=== PATIENT | female | born 1975 | race Caucasian/White ===

== ENCOUNTER 2017-06-25 13:37 | Emergency (ER) | payer OTHER ==
[2017-06-25 13:47] VITALS: BP 136/91
--- NOTE | 2017-06-25 14:34 | EDM.PDOC ---
ED HPI GENERAL MEDICAL PROBLEM - General Chief Complaint: Eye Problems Stated Complaint: LOSS OF VISION IN LEFT EYE Time Seen by Provider: 06/25/17 14:04 Source of Information: Reports: Patient History Limitations: Reports: No Limitations - History of Present Illness INITIAL COMMENTS - FREE TEXT/NARRATIVE: Patient is a 41-year-old female who presents ED complaining of episodic left thigh vision loss. This occurred approximately 10:30 this morning after starting her vehicle. Came on abruptly went away after a few seconds. She has a similar episode 06/22/2017. She has no complaints at this time except head is alittle fuzzy.Had flu like symptoms this weekend. This included: Generalized body aches, headache, fever 102F, with intermittent dizziness that has all since resolved as of today. She has no recent trauma to her head nor history of TIA/stroke. 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 There is no facial droop, weakness, slurred speech, difficulty swallowing present. Patient does smoke half pack per day is currently on no control. There is a family history of MS and notes that she had a previous MRI of the brain that revealed multiple white matter lesions present. She is currently on no medications. - Related Data Allergies Allergy/AdvReac Type Severity Reaction Status Date / Time doxycycline Allergy Rash Verified 06/25/17 13:47 Home Meds: Home Meds D-Methorphan/Acetamin/Doxylamn [Cold-Flu Relief] 1 dose PO ASDIRECTED PRN [History] Past Medical History Other Cardiovascular History: asystole during tonsillectomy as child, reynauds Respiratory History: Reports: Pneumonia, Recurrent Other Respiratory History: open lung biopsy Other OB/BYN History: miscarriage at 20 weeks, blood clot during Other Neuro History: family history of MS; Belles palsy 2005 Other Endocrine/Metabolic History: cyst by thyroid, was removed; Other Dermatologic History: hydradenititis - Past Surgical History Other Female Surgeries/Procedures: pre-eclampsia 2nd child, cervical intraipthelial neoplasma x2, D&C, bladder sling Other Musculoskeletal Surgeries/Procedures:: broke foot 97 Social & Family History - Family History Family Medical History: Noncontributory - Tobacco Use Smoking Status *Q: Current Every Day Smoker Years of Tobacco use: 20 Packs/Tins Daily: 0.5 Used Tobacco, but Quit: No Month Tobacco Last Used: october Second Hand Smoke Exposure: No - Caffeine Use Caffeine Use: Reports: Coffee - Alcohol Use Days Per Week of Alcohol Use: 1 Number of Drinks Per Day: 1 Total Drinks Per Week: 1 - Recreational Drug Use Recreational Drug Use: No Drug Use in Last 12 Months: No ED ROS GENERAL - Review of Systems Review Of Systems: ROS reveals no pertinent complaints other than HPI. ED EXAM GENERAL W FULL EYE - Physical Exam Exam: See Below Exam Limited By: No Limitations General Appearance: Alert, WD/WN, No Apparent Distress Eye Exam: Bilateral Eye: EOMI, PERRL Eyelids: Bilateral: Normal Appearance Conjunctiva & Sclera: Bilateral: Normal Appearance Extraocular Movements: Bilateral: Intact Pupillary Size: Bilateral: 4 mm Pupillary Reaction: Bilateral: Brisk Ears: Hearing Grossly Normal Nose: Normal Inspection Throat/Mouth: Normal Voice, No Airway Compromise Neck: Normal Inspection, Supple Respiratory/Chest: No Respiratory Distress, Lungs Clear, Normal Breath Sounds, No Accessory Muscle Use Cardiovascular: Normal Peripheral Pulses, Regular Rate, Rhythm, No Murmur Extremities: Normal Inspection Neurological: Alert, Oriented, CN II-XII Intact, Normal Cognition, No Motor/ Sensory Deficits, Other (no facial droop, slurred speech, weakness to the upper/ lower extremities) Psychiatric: Normal Affect, Normal Mood Skin Exam: Warm, Dry, Intact, Normal Color Course - Vital Signs Last Recorded V/S: Last Vital Signs Temp 97.9 F 06/25/17 13:40 Pulse 81 06/25/17 13:40 Resp 18 06/25/17 13:40 BP 136/91 H 06/25/17 13:40 Pulse Ox 98 06/25/17 13:40 - Orders/Labs/Meds Labs: Laboratory Tests 06/25/17 06/25/17 Range/Units 14:40 14:40 WBC 3.52 L (3.98-10.04) K/mm3 RBC 4.59 (3.98-5.22) M/mm3 Hgb 14.2 (11.2-15.7) gm/L Hct 42.6 (34.1-44.9) % MCV 92.8 (79.4-94.8) fl MCH 30.9 (25.6-32.2) pg MCHC 33.3 (32.2-35.5) g/dl RDW Std Deviation 41.8 (36.4-46.3) fL Plt Count 220 (182-369) K/mm3 MPV 10.0 (9.4-12.3) fl Neut % (Auto) 29.0 L (34.0-71.1) % Lymph % (Auto) 58.2 H (19.3-51.7) % [place] % (Auto) 10.2 (4.7-12.5) % Eos % (Auto) 2.3 (0.7-5.8) Baso % (Auto) 0.3 (0.1-1.2) % Neut # (Auto) 1.02 L (1.56-6.13) K/mm3 Lymph # (Auto) 2.05 (1.18-3.74) K/mm3 [place] # (Auto) 0.36 (0.24-0.36) K/mm3 Eos # (Auto) 0.08 (0.04-0.36) K/mm3 Baso # (Auto) 0.01 (0.01-0.08) K/mm3 Sodium 142 (136-145) mEq/L Potassium 3.9 (3.5-5.1) mEq/L Chloride 108 H (98-107) mEq/L Carbon Dioxide 24 (21-32) mEq/L Anion Gap 13.9 (5-15) BUN 8 (7-18) mg/dL Creatinine 0.6 (0.55-1.02) mg/dL Est Cr Clr Drug Dosing 123.21 mL/min Estimated GFR (MDRD) > 60 (>60) mL/min BUN/Creatinine Ratio 13.3 L (14-18) Glucose 100 (74-106) mg/dL Calcium 8.7 (8.5-10.1) mg/dL Total Bilirubin 0.2 (0.2-1.0) mg/dL AST 15 (15-37) U/L ALT 28 (14-59) U/L Alkaline Phosphatase 71 (46-116) U/L C-Reactive Protein < 0.2 (<1.0) mg/dL Total Protein 6.5 (6.4-8.2) g/dl Albumin 3.4 (3.4-5.0) g/dl Globulin 3.1 gm/dL Albumin/Globulin Ratio 1.1 (1-2) TSH 3rd Generation 1.724 (0.358-3.74) uIU/mL - Re-Assessments/Exams Free Text/Narrative Re-Assessment/Exam: Will obtain CT of the head without contrast along with basic labs including CBC , chem 14, CRP, influenza screen, and also TSH. Visual Acuity per nursing staff: 20/20 bilateral, 20/40 right, 20/[address] of the head impression: Nothing acute is identified a noncontrast head CT study. No significant changes seen from prior head CT exam dated 02/11/16. 06/25/17 15:42 Labs reviewed: CBC and chemistry panel essentially normal. CRP less than 0.2. TSH 1.74. She was able to obtain appointment with food and nutrition services assistant at 4:00 today. Will discharge home with instructions. Outpatient MRI of the brain with and without contrast will be obtained. Departure - Departure Time of Disposition: 15:43 Disposition: Home, Self-Care 01 Condition: Good Clinical Impression: Vision loss of left eye - Discharge Information Referrals: Rob Amor MD [Primary Care Provider] - Forms: ED Department Discharge Additional Instructions: As discussed MRI of the brain with and without contrast will be obtained on outpatient basis. Unclear etiology of recent episodic vision loss to the left eye. This may be associated with MS. Keep appointment with food and nutrition services assistant scheduled for this afternoon at 1600 hrs. Return to ED if you develop any new or worsening symptoms. Follow-up with her primary care provider this coming week for reevaluation and results of MRI.
--- NOTE | 2017-06-25 14:58 | CT ---
Head CT Technique: Multiple axial sections through the brain were obtained. Intravenous contrast was not utilized. Comparison: Prior head CT exam of 02/11/16. Findings: Ventricles along with basal cisterns and sulci over the convexities are within normal limits for the patient's age. No abnormal parenchymal densities are seen. No evidence of intracranial hemorrhage. No midline shift or mass effect is seen. Bone window settings were reviewed which show the visualized sinuses to appear clear. No acute calvarial abnormality is seen. Impression: 1. Nothing acute is identified on noncontrast head CT study. No significant change is seen from prior head CT exam. Diagnostic code #1
== END 2017-06-25 15:50 | disposition home or self-care (01) ==
LOC: JD.ED 13:37
DX: H54.7 Unspecified visual loss (principal); F17.210 Nicotine dependence, cigarettes, uncomplicated; Z88.1 Allergy status to other antibiotic agents
CPT/HCPCS: 36415; 70450; 70450-26; 80053; 84443; 85025; 86140; 87804; 99283; 99284-25

== ENCOUNTER 2017-11-27 06:59 | Day surgery (SDC) | payer OTHER ==
--- NOTE | 2017-11-27 06:47 | PCM.PREANE ---
Preanesthetic Assessment - Anesthesia/Transfusion/Family Hx Anesthesia History: Prior Anesthesia Without Reaction Family History of Anesthesia Reaction: No Transfusion History: No Prior Transfusion(s) Intubation History: Unknown - Review of Systems General: No Symptoms Pulmonary: No Symptoms (Smoker: 0.5 packs/day times 25 years.) Cardiovascular: Lightheadedness (Patient states she gets dizzy on occasion.) Gastrointestinal: No Symptoms (GERD) Neurological: No Symptoms (History of raynauds disease) Other: Reports: Depression, Anxiety - Physical Assessment NPO Status Date: 11/26/17 NPO Status Time: 21:00 Pulse: 71 O2 Sat by Pulse Oximetry: 97 Respiratory Rate: 16 Blood Pressure: 115/72 Temperature: 37.4 C Height: 1.73 m Weight: 78.471 kg ASA Class: 2 Mental Status: Alert & Oriented x3 Airway Class: Mallampati = 2 Dentition: Reports: Normal Dentition, Caries Thyro-Mental Finger Breadths: 3 Mouth Opening Finger Breadths: 3 ROM/Head Extension: Full Lungs: Clear to Auscultation, Normal Respiratory Effort Cardiovascular: Regular Rate, Regular Rhythm, No Murmurs - Lab Values: Lab values reviewed and noted and within acceptable ranges to proceed with scheduled procedure. - Imaging/EKG Impressions: Prior EKG: SR rate 68, LAFB, RBBB. - Allergies Allergies/Adverse Reactions: Allergies Allergy/AdvReac Type Severity Reaction Status Date / Time doxycycline Allergy Rash Verified 11/26/17 13:19 - Anesthesia Plan Pre-Op Medication Ordered: None - Acknowledgements Anesthesia Type Planned: General Anesthesia Pt an Appropriate Candidate for the Planned Anesthesia: Yes Alternatives and Risks of Anesthesia Discussed w Pt/Guardian: Yes Pt/Guardian Understands and Agrees with Anesthesia Plan: Yes PreAnesthesia Questionnaire Cardiovascular History: Reports: None Other Cardiovascular History: asystole during tonsillectomy as child Respiratory History: Reports: Pneumonia, Recurrent Other Respiratory History: open lung biopsy Gastrointestinal History: Reports: Hemorrhoids Genitourinary History: Reports: Urinary Incontinence ETHANOL QUALITY LEADER History: Reports: Spontaneous Other OB/BYN History: miscarriage at 20 weeks, blood clot during , female pelvic organ prolapse, rectocele, cystocele Other Neuro History: family history of MS; Belles palsy 2006 Psychiatric History: Reports: Anxiety, Depression Other Endocrine/Metabolic History: cyst by thyroid, was removed; Hematologic History: Reports: None Immunologic History: Reports: None Oncologic (Cancer) History: Reports: None Other Dermatologic History: hydradenititis - Past Surgical History Head Surgeries/Procedures: Reports: None HEENT Surgical History: Reports: Adenoidectomy, Tonsillectomy Cardiovascular Surgical History: Reports: None GI Surgical History: Reports: None Female Surgical History: Reports: D&C, Hysterectomy, LEEP, Oophorectomy, Salpingo-Oophorectomy, Tubal Ligation Other Female Surgeries/Procedures: pre-eclampsia 2nd child, cervical intraipthelial neoplasma x2, D&C, bladder sling Endocrine Surgical History: Reports: Thyroid Biopsy Neurological Surgical History: Reports: None Other Musculoskeletal Surgeries/Procedures:: broke foot 97, hammertoe and bunion correction to right foot Oncologic Surgical History: Reports: None - SUBSTANCE USE Smoking Status *Q: Current Every Day Smoker Tobacco Use Within Last Twelve Months: Cigarettes Second Hand Smoke Exposure: No Days Per Week of Alcohol Use: 1 Number of Drinks Per Day: 1 Total Drinks Per Week: 1 Recreational Drug Use History: No - HOME MEDS Home Medications: Home Meds Docusate Sodium [Colace] 100 mg PO DAILY 11/26/17 [History] LORazepam [Ativan] 0.5 mg PO QID PRN 11/26/17 [History] Ranitidine [Zantac] 75 mg PO DAILY 11/26/17 [History]
[2017-11-27] MEDS ORDERED: Lidocaine 1% with EPINEPHrine 1:100,000 20 ML MDV ONE (07:06)
[2017-11-27] MEDS ORDERED: Sodium Chloride 0.9% 50 ML SDV ONE (07:06)
[2017-11-27] MEDS ORDERED: Dexamethasone 4 MG/ML 5 ML MDV ONE (07:11)
[2017-11-27] MEDS ORDERED: ceFAZolin 1 GM Vial ONE (07:11)
[2017-11-27] MEDS ORDERED: Lidocaine 1% 6 ML ONE (07:11)
[2017-11-27] MEDS ORDERED: Ketorolac 30 MG/ML SDV ONE (07:11)
[2017-11-27] MEDS ORDERED: Rocuronium 50 MG/5 ML Vial ONE (07:11)
[2017-11-27] MEDS ORDERED: Lactated Ringers 1,000 ML ONE (07:11)
[2017-11-27] MEDS ORDERED: Ondansetron 4 MG/2 ML SDV ONE (07:11)
[2017-11-27] MEDS ORDERED: Propofol 200 MG/20 ML SDV ONE (07:12)
[2017-11-27] MEDS ORDERED: Midazolam 1 MG/ML 2 ML SDV ONE (07:12)
[2017-11-27] MEDS ORDERED: fentaNYL 250 MCG/5 ML SDV ONE (07:12)
[2017-11-27] MEDS ORDERED: HYDROmorphone 0.5 MG/0.5 ML Syringe ONE (07:13)
[2017-11-27] MEDS: Lactated Ringers 1,000 ML IV SCH ×2 (07:20→11:49)
[2017-11-27] MEDS ORDERED: Lidocaine 1%/Sod Bicarbonate in NS 8.4% 1 ML Syringe IDERM PRN (07:44)
[2017-11-27] MEDS ORDERED: Sodium Chloride 0.9% 10 ML Syringe FLUSH PRN ×2 (07:44)
[2017-11-27] MEDS ORDERED: diphenhydrAMINE 50 MG/ML SDV IVPUSH PRN (08:47)
[2017-11-27] MEDS ORDERED: Ondansetron 4 MG/2 ML SDV IVPUSH PRN (08:47)
[2017-11-27] MEDS ORDERED: fentaNYL 100 MCG/2 ML SDV IVPUSH PRN (08:47)
[2017-11-27] MEDS ORDERED: Midazolam 1 MG/ML 2 ML SDV IVPUSH PRN (08:47)
[2017-11-27] MEDS ORDERED: HYDROmorphone 0.5 MG/0.5 ML Syringe IVPUSH PRN (08:47)
[2017-11-27] MEDS ORDERED: Neostigmine Methylsulfate 1 MG/ML 5 ML Syringe ONE (08:53)
--- NOTE | 2017-11-27 08:57 | PCM.OPNOTE ---
- General Post-Op/Procedure Note Date of Surgery/Procedure: 11/27/17 Operative Procedure(s): Posterior vaginal repair, perineoplasty Findings: Very high grade 2 rectocele, mildly gaping introitus Pre Op Diagnosis: 1. Rectocele Post-Op Diagnosis: Same Anesthesia Technique: General ET Tube Other Anesthesia Type: Lidocaine quarter percent with [id number] mL total local Primary Surgeon: Natalio Zuniga Secondary Surgeon: Pierce Guerin Anesthesia Provider: Lexi Hong Reason Shoe Handler Was Necessary: Retraction, assistance, patient safety, quality of care Role of Shoe Handler: Retraction, assistance Fluid Replacement, Intraop: 400 EBL in mLs: 5 Complications: None Condition: Good Free Text/Narrative:: Surgery duration: 26 minutes Procedure: The patient is taken to the operating room and placed in a supine position on the operating table. She received 2 g of Ancef preoperatively for infection prophylaxis. She had sequential compression stockings in place for DVT prophylaxis. Patient was administered spinal anesthesia and administered sedation in addition. She's placed in a dorsal lithotomy position and prepped and draped in the usual fashion. The uppermost portion of the very high rectocele was identified and was grasped midline with an Allis clamp. The introital area was grasped at approximately the 4:00 and 8:00 positions at the junction of the vaginal and vulvar epithelium. The area of epithelium was then infiltrated with lidocaine quarter percent with epinephrine. A lee-shaped piece of epithelium was removed from the posterior introital and perineal area. The vaginal epithelium was then undermined superiorly to the top of the rectocele. Was then incised midline. With sharp and blunt dissection the epithelium was then dissected off of the underlying vesicovaginal fascia. At this point approximately 3 sutures of 0 Monocryl were placed to reapproximate the lateral supportive tissue midline and reduce the rectocele. The excess epithelium was then excised and the epithelium overlying the rectocele repair was then reapproximated with a running suture of 3-0 Monocryl. Perineoplasty was then performed with approximately 3 V-shaped stitches of 0 Monocryl in placed to reapproximate the lateral tissue midline, rebuild the perineum about 1 cm and the vagina approximately 1 cm. The epithelium of the introitus and perineal body was then reapproximated using 3-0 Monocryl in an episiotomy repair fashion. At this time sponge, instrument and needle counts were correct. The patient was returned to supine position and was discharged from the operating room in good condition.
--- NOTE | 2017-11-27 09:13 | PCM.POSTAN ---
POST ANESTHESIA ASSESSMENT - MENTAL STATUS Mental Status: Alert - VITAL SIGNS Pulse Rate: 77 SaO2: 99 Resp Rate: 16 Blood Pressure: 119/68 Temperature: 37.3 C - RESPIRATORY Respiratory Status: Respiratory Rate WNL, Airway Patent, O2 Saturation Stable, Supplemental Oxygen - CARDIOVASCULAR CV Status: Pulse Rate WNL, Blood Pressure Stable - GASTROINTESTINAL GI Status: No Symptoms - POST OP HYDRATION Hydration Status: Adequate & Stable
[2017-11-27] MEDS ORDERED: Ibuprofen 600 MG Tab PO ONE (10:27)
[2017-11-27] MEDS ORDERED: Acetaminophen/oxyCODONE 325-5 MG Tab PO ONE (10:40)
--- NOTE | 2017-11-27 11:50 | PCM48HPAN ---
Post Anesthesia Note - EVALUATION WITHIN 48HRS OF ANESTHETIC Vital Signs in Normal Range: Yes Patient Participated in Evaluation: Yes Respiratory Function Stable: Yes Airway Patent: Yes Cardiovascular Function Stable: Yes Hydration Status Stable: Yes Pain Control Satisfactory: Yes Nausea and Vomiting Control Satisfactory: Yes Mental Status Recovered: Yes
[2017-11-27 13:25] VITALS: BP 107/78
== END 2017-11-27 13:10 | disposition home or self-care (01) ==
LOC: JD.SDS 06:59
PROVIDERS: ATTEND Obstetrics & Gynecology
DX: N81.6 Rectocele (principal); R15.9 Full incontinence of feces; F17.210 Nicotine dependence, cigarettes, uncomplicated; K21.9 Gastro-esophageal reflux disease without esophagitis; F41.9 Anxiety disorder, unspecified; F32.9 Major depressive disorder, single episode, unspecified; Z79.899 Other long term (current) drug therapy; Z88.1 Allergy status to other antibiotic agents
CPT/HCPCS: 57250; 93005; J0690; J1100; J1170; J1885; J2001; J2250; J2405; J2710; J3010; J7120; J2704

== ENCOUNTER 2021-01-15 16:59 | Emergency (ER) | payer OTHER ==
[2021-01-15] MEDS ORDERED: methylPREDNISolone Sodium Succinate 125 MG/2 ML SDV IVPUSH ONE (17:59)
[2021-01-15] MEDS ORDERED: diphenhydrAMINE 50 MG/ML SDV IVPUSH ONE (18:00)
[2021-01-15] MEDS ORDERED: Famotidine 20 MG/2 ML SDV IVPUSH ONE (18:00)
[2021-01-15] MEDS ORDERED: Ketorolac 30 MG/ML SDV IVPUSH ONE (18:53)
[2021-01-15 19:15] VITALS: BP 137/80; PULSE 97
--- NOTE | 2021-01-15 19:30 | EDM.PDOC ---
ED HPI GENERAL MEDICAL PROBLEM - General Chief Complaint: Skin Complaint Stated Complaint: FACIAL SWELLING AND RASH Time Seen by Provider: 01/15/21 17:42 Source of Information: Reports: Patient, RN Notes Reviewed History Limitations: Reports: No Limitations - History of Present Illness INITIAL COMMENTS - FREE TEXT/NARRATIVE: Patient is a 45-year-old female presenting to the emergency department with complaints of rash to her face, neck, and bilateral arms which began yesterday evening. Also reports mild headache and neck pain. She denies any known allergens. She has not changed cosmetic products, soaps, or laundry detergents recently. She has been using Benadryl at home, however her last dose was not since noon today. She reports that she has been seeing her primary care provider, Dr. Barbour, since the beginning of the month for abnormal bruising. Blood work was done at that time and she was found to have thrombocytopenia and slightly low hemoglobin as well. Reports that her platelets were 51,000 initially but had increased to 71,000 on a subsequent blood draw. Hemoglobin was low at 10.7. She has a history of melanoma which was able to be successfully excised in June of this year. She has been referred to Dr. Prado, enterprise manager/oncologist for evaluation. She is to follow-up with her primary care provider in 1 week. She denies any swelling or itching in her mouth or oropharynx. She has no shortness of breath or wheezing. Headache Pain Score (Numeric/FACES): 5 - Related Data Allergies Allergy/AdvReac Type Severity Reaction Status Date / Time doxycycline Allergy Severe Rash Verified 01/15/21 17:28 Home Meds: Home Meds Docusate Sodium [Colace] 100 mg PO DAILY 11/26/17 [History] LORazepam [Ativan] 0.5 mg PO QID PRN 11/26/17 [History] Ranitidine [Zantac] 75 mg PO DAILY 11/26/17 [History] Ibuprofen 600 mg PO Q4HR PRN #30 tablet 11/27/17 [Rx] predniSONE [Prednisone] 20 mg PO ASDIRECTED #15 tablet 01/15/21 [Rx] Past Medical History Cardiovascular History: Reports: None Other Cardiovascular History: asystole during tonsillectomy as child, eusebia Respiratory History: Reports: Pneumonia, Recurrent Other Respiratory History: open lung biopsy Gastrointestinal History: Reports: Hemorrhoids Genitourinary History: Reports: Urinary Incontinence MENTAL HEALTH COORDINATOR History: Reports: Spontaneous Other MENTAL HEALTH COORDINATOR History: miscarriage at 20 weeks, blood clot during Other Neuro History: family history of MS; Belles palsy 2006 Psychiatric History: Reports: Anxiety, Depression Other Endocrine/Metabolic History: cyst by thyroid, was removed; Hematologic History: Reports: None Immunologic History: Reports: None Oncologic (Cancer) History: Reports: None Other Dermatologic History: hydradenititis - Infectious Disease History Infectious Disease History: Reports: None - Past Surgical History Head Surgeries/Procedures: Reports: None HEENT Surgical History: Reports: Adenoidectomy, Tonsillectomy Cardiovascular Surgical History: Reports: None GI Surgical History: Reports: None Female Surgical History: Reports: D&C, Hysterectomy, LEEP, Oophorectomy, Salpingo-Oophorectomy, Tubal Ligation Other Female Surgeries/Procedures: pre-eclampsia 2nd child, cervical intraipthelial neoplasma x2, D&C, bladder sling Endocrine Surgical History: Reports: Thyroid Biopsy Neurological Surgical History: Reports: None Other Musculoskeletal Surgeries/Procedures:: broke foot 97 Oncologic Surgical History: Reports: None Social & Family History - Family History Family Medical History: No Pertinent Family History - Tobacco Use Tobacco Use Status *Q: Current Every Day Tobacco User Years of Tobacco use: 20 Packs/Tins Daily: 0.5 - Caffeine Use Caffeine Use: Reports: Coffee - Recreational Drug Use Recreational Drug Use: No ED ROS GENERAL - Review of Systems Review Of Systems: Comprehensive ROS is negative, except as noted in HPI. ED EXAM, SKIN/RASH Exam: See Below Exam Limited By: No Limitations General Appearance: Alert, WD/WN, No Apparent Distress Respiratory/Chest: No Respiratory Distress, Lungs Clear, Normal Breath Sounds, No Accessory Muscle Use, Chest Non-Tender Cardiovascular: Normal Peripheral Pulses, Regular Rate, Rhythm, No Edema, No Gallop, No JVD, No Murmur, No Rub Neurological: Alert, Oriented, CN II-XII Intact, Normal Cognition, Normal Gait, Normal Reflexes, No Motor/Sensory Deficits Psychiatric: Normal Affect, Normal Mood Skin: Rash Location, Skin: Face, Neck, Upper Extremity, Right, Upper Extremity, Left Characteristics: Urticarial, Other (wheels) Course - Vital Signs Last Recorded V/S: Last Vital Signs Temp 98 F 01/15/21 19:15 Pulse 97 01/15/21 19:15 Resp 18 01/15/21 19:15 BP 137/80 01/15/21 19:15 Pulse Ox 97 01/15/21 19:15 - Orders/Labs/Meds Labs: Laboratory Tests 01/15/21 01/15/21 01/15/21 Range/Units 18:52 18:52 18:52 WBC 7.27 (3.98-10.04) K/mm3 RBC 3.40 L (3.98-5.22) M/mm3 Hgb 11.0 L D (11.2-15.7) gm/dl Hct 33.4 L (34.1-44.9) % MCV 98.2 H D (79.4-94.8) fl MCH 32.4 H (25.6-32.2) pg MCHC 32.9 (32.2-35.5) g/dl RDW Std Deviation 51.0 H (36.4-46.3) fL Plt Count 71 L D (182-369) K/mm3 MPV 9.7 (9.4-12.3) fl Neut % (Auto) 52.0 (34.0-71.1) % Lymph % (Auto) 33.1 (19.3-51.7) % [place] % (Auto) 7.2 (4.7-12.5) % Eos % (Auto) 6.7 H (0.7-5.8) Baso % (Auto) 0.6 (0.1-1.2) % Neut # (Auto) 3.78 (1.56-6.13) K/mm3 Lymph # (Auto) 2.41 (1.18-3.74) K/mm3 [place] # (Auto) 0.52 H (0.24-0.36) K/mm3 Eos # (Auto) 0.49 H (0.04-0.36) K/mm3 Baso # (Auto) 0.04 (0.01-0.08) K/mm3 Manual Slide Review Abnormal smear ESR 4 (0-20) mm/hr Sodium 144 (136-145) mEq/L Potassium 3.4 L (3.5-5.1) mEq/L Chloride 109 H (98-107) mEq/L Carbon Dioxide 26 (21-32) mEq/L Anion Gap 12.4 (5-15) BUN 16 (7-18) mg/dL Creatinine 0.8 (0.55-1.02) mg/dL Est Cr Clr Drug Dosing 91.83 mL/min Estimated GFR (MDRD) > 60 (>60) mL/min BUN/Creatinine Ratio 20.0 H (14-18) Glucose 120 H (70-99) mg/dL Calcium 8.7 (8.5-10.1) mg/dL Total Bilirubin 0.4 (0.2-1.0) mg/dL AST 10 L (15-37) U/L ALT 21 (14-59) U/L Alkaline Phosphatase 85 (46-116) U/L Total Protein 6.3 L (6.4-8.2) g/dl Albumin 3.6 (3.4-5.0) g/dl Globulin 2.7 gm/dL Albumin/Globulin Ratio 1.3 (1-2) Meds: Medications Discontinued Medications Generic Name Dose Route Start Last Admin Trade Name Alfred PRN Reason Stop Dose Admin Diphenhydramine HCl 50 mg 01/15/21 18:00 01/15/21 19:00 Diphenhydramine 50 Mg/Ml Sdv IVPUSH 01/15/21 18:01 50 mg ONETIME ONE Administration Famotidine 40 mg 01/15/21 18:00 01/15/21 19:00 Famotidine 20 Mg/2 Ml Sdv IVPUSH 01/15/21 18:01 40 mg ONETIME ONE Administration Ketorolac Tromethamine 30 mg 01/15/21 18:53 01/15/21 19:00 Ketorolac 30 Mg/Ml Sdv IVPUSH 01/15/21 18:54 30 mg ONETIME ONE Administration Methylprednisolone Sodium Succinate 125 mg 01/15/21 17:59 01/15/21 19:00 Methylprednisolone Sodium Succinate 125 Mg/2 Ml Sdv IVPUSH 01/15/21 18:00 125 mg ONETIME ONE Administration - Re-Assessments/Exams Free Text/Narrative Re-Assessment/Exam: Patient is a 45-year-old female presenting to the emergency department with complaints of an itchy rash to her face, neck, and arms. This began last evening. On exam, she has diffuse hives to her face, neck, and forearms. Exam is otherwise unremarkable. Oropharynx is normal as are her mucous membranes. I have ordered blood work, Solu-Medrol, Pepcid, Benadryl, and Toradol. 01/15/21 20:05 Hematology significant for hemoglobin low at 11.0, platelet low at 71.0. ESR is still pending, however this will not change treatment today. Results will be sent to her primary care provider and this will be available. Her rash has improved significantly with the medications given. There is still mild rash on her face, however rash to her arms has resolved. She is feeling much better. We will discharge her home with prescription for tapering prednisone. Recommend Pepcid 20 mg daily as well as Sofia daily. Discussed return precautions. Discharge instructions as documented. Departure - Departure Time of Disposition: 20:06 Disposition: Home, Self-Care 01 Condition: Good Clinical Impression: Allergic reaction Qualifiers: Encounter type: initial encounter Qualified Code(s): T78.40XA - Allergy, unspecified, initial encounter - Discharge Information *PRESCRIPTION DRUG MONITORING PROGRAM REVIEWED*: No *COPY OF PRESCRIPTION DRUG MONITORING REPORT IN PATIENT LIYAH: No Prescriptions: predniSONE [Prednisone] 20 mg PO ASDIRECTED #15 tablet Instructions: Allergies, Adult, [id number] Referrals: Rob Amor MD [Primary Care Provider] - Forms: ED Department Discharge Additional Instructions: You were seen in the emergency department today for an itchy rash to her face, neck, and arms. Blood work was completed. Hemoglobin was low at 11.0. Platelets 71.0. While in the ER, you received Solu-Medrol which is a steroid, Benadryl, Pepcid, and Toradol. This did significantly improve your rash. Prescription has been sent for prednisone. Take this as prescribed starting t omorrow. Recommend taking Pepcid 40 mg daily for the next 5 days as well as Sofia 180 mg daily. If needed, you may use Benadryl as well. Recommend following up with your primary care provider next week. Return to ER she develop any new or worsening symptoms. Sepsis Event Note (ED) - Evaluation Sepsis Screening Result: No Definite Risk
== END 2021-01-15 20:20 | disposition home or self-care (01) ==
LOC: JD.ED 16:59
DX: L50.0 Allergic urticaria (principal); R51.9 Headache, unspecified; M54.2 Cervicalgia; Z88.1 Allergy status to other antibiotic agents; Z79.899 Other long term (current) drug therapy; Z72.0 Tobacco use
CPT/HCPCS: 36415; 80053; 85025; 85652; 96374; 96375; 99283; J1200; J1885; J2930; J3490

== ENCOUNTER 2021-03-05 20:11 | Emergency (ER) | payer OTHER ==
[2021-03-05 20:24] VITALS: BP 146/94; PULSE 81
[2021-03-05] MEDS: Sodium Chloride 0.9% 10 ML Syringe FLUSH PRN ×3 (22:14→23:46)
--- NOTE | 2021-03-05 22:37 | EDM.PDOC ---
<Corrina Sotelo - Last Filed: 03/05/21 23:59> ED HPI GENERAL MEDICAL PROBLEM - General Chief Complaint: Chest Pain Stated Complaint: CHEST PAIN Time Seen by Provider: 03/05/21 21:49 Source of Information: Reports: Patient, RN Notes Reviewed History Limitations: Reports: No Limitations - History of Present Illness INITIAL COMMENTS - FREE TEXT/NARRATIVE: Patient is a 45-year-old female presenting to the emergency department with complaints of headache, chest pain and abdominal pain for the last 4 days. She reports, sharp/midsternal chest pain with occasional shooting sensation which has been intermittent since Sunday. Today it has been more constant in nature. She also reports recurrent headache and generalized abdominal pain which has been intermittent for the last few days but more constant today. Patient has a history of thrombocytopenia of unknown origin. She reports that last month, she was hospitalized at [facility] in [place] for an extended period of time. During that time, she was found to have elevated cardiac enzymes indicating that she had a heart attack, however no blockage was found during that time. She also was found to have an infected gallbladder with an abcess behind her liver. She had her gallbladder removed. She did require platelet transfusion during her stay. She has had bone marrow biopsies as well as a number of other tests completed to try to determine the cause of her thrombocytopenia, however she has not been formally diagnosed with anything. States that she has been advised that she has inflammation in her stomach. She continues to have a recurrent rash similar to the one that she was seen for in this emergency department on 15 January. She saw her driving teacher/oncologist Dr. Vences, on Sunday, March 01. She did mention these chest pains to him at that time. Review of [facility] lab work indicates that troponins were checked at that time and found to be normal. Platelets 4 days ago were 87. She states that he has recommended that she see immunology as he thinks she may have an autoimmune disorder recurring. She denies any significant shortness of breath. She has had no fever or chills. Patient's ethnic studies professor is Dr. Daniel. Chest Pain Score (Numeric/FACES): 9 - Related Data Allergies Allergy/AdvReac Type Severity Reaction Status Date / Time doxycycline Allergy Intermediate Rash Verified 03/05/21 20:24 Home Meds: Home Meds Docusate Sodium [Colace] 100 mg PO DAILY 11/26/17 [History] LORazepam [Ativan] 0.5 mg PO QID PRN 11/26/17 [History] Past Medical History Cardiovascular History: Reports: SD Other Cardiovascular History: asystole during tonsillectomy as child, reynauds Respiratory History: Reports: Pneumonia, Recurrent Other Respiratory History: open lung biopsy Gastrointestinal History: Reports: GERD, Hemorrhoids Genitourinary History: Reports: Urinary Incontinence CLINCHING MACHINE OPERATOR History: Reports: Spontaneous Other CLINCHING MACHINE OPERATOR History: miscarriage at 20 weeks, blood clot during Musculoskeletal History: Reports: Other (See Below) Other Musculoskeletal History: left foot surgery Other Neuro History: family history of MS; Belles palsy 2006 Psychiatric History: Reports: Anxiety, Depression Other Endocrine/Metabolic History: cyst by thyroid, was removed; Hematologic History: Reports: Blood Transfusion(s) Immunologic History: Reports: None Oncologic (Cancer) History: Reports: None Other Dermatologic History: hydradenititis - Infectious Disease History Infectious Disease History: Reports: None - Past Surgical History Head Surgeries/Procedures: Reports: None HEENT Surgical History: Reports: Adenoidectomy, Tonsillectomy Cardiovascular Surgical History: Reports: None GI Surgical History: Reports: Cholecystectomy Female Surgical History: Reports: D&C, Hysterectomy, LEEP, Oophorectomy, Salpingo-Oophorectomy, Tubal Ligation Other Female Surgeries/Procedures: pre-eclampsia 2nd child, cervical intraipthelial neoplasma x2, D&C, bladder sling Endocrine Surgical History: Reports: Thyroid Biopsy Neurological Surgical History: Reports: None Other Musculoskeletal Surgeries/Procedures:: broke foot 97 Oncologic Surgical History: Reports: None Social & Family History - Family History Family Medical History: No Pertinent Family History - Tobacco Use Tobacco Use Status *Q: Current Every Day Tobacco User Years of Tobacco use: 20 Packs/Tins Daily: 0.5 - Caffeine Use Caffeine Use: Reports: Coffee - Recreational Drug Use Recreational Drug Use: No ED ROS GENERAL - Review of Systems Review Of Systems: See Below Constitutional: Reports: No Symptoms. Denies: Fever, Chills HEENT: Reports: No Symptoms Respiratory: Reports: No Symptoms. Denies: Shortness of Breath, Cough Cardiovascular: Reports: Chest Pain. Denies: Dyspnea on Exertion, Lightheadedness, Palpitations, Syncope Endocrine: Reports: No Symptoms GI/Abdominal: Reports: Abdominal Pain, Nausea. Denies: Diarrhea, Vomiting : Reports: No Symptoms Musculoskeletal: Reports: No Symptoms Skin: Reports: No Symptoms Neurological: Reports: Headache. Denies: Confusion, Dizziness Psychiatric: Reports: No Symptoms Hematologic/Lymphatic: Reports: No Symptoms Immunologic: Reports: No Symptoms ED EXAM, GENERAL - Physical Exam Exam: See Below Exam Limited By: No Limitations General Appearance: Alert, WD/WN, Anxious Respiratory/Chest: No Respiratory Distress, Lungs Clear, Normal Breath Sounds, No Accessory Muscle Use, Chest Non-Tender Cardiovascular: Normal Peripheral Pulses, Regular Rate, Rhythm, No Edema, No Gallop, No JVD, No Murmur, No Rub GI/Abdominal: Normal Bowel Sounds, Soft, No Organomegaly, No Distention, No Abnormal Bruit, No Mass, Tender (Epigastric and left lower quadrant). No: Guarding, Rigid, Rebound Neurological: Alert, Oriented, CN II-XII Intact, Normal Cognition, Normal Gait, Normal Reflexes, No Motor/Sensory Deficits Psychiatric: Normal Affect Skin Exam: Warm, Dry, Intact, Normal Color, No Rash #1 Interpretation EKG Date: 03/05/21 Time: 20:28 Rhythm: NSR Rate (Beats/Min): 72 [place]: LAD-Left [place] Deviation QRS: Other (RBB, LAFB) ST-T: Normal QT: Normal Course - Re-Assessments/Exams Free Text/Narrative Re-Assessment/Exam: Patient is a 45-year-old female presenting to the emergency department with complaints of a 4-day history of intermittent abdominal pain, headaches, and chest pain. Patient has a quite extensive history over the last couple months. She has not been given definitive diagnosis as to why she has low platelets. He had a previous episode of elevated troponins, however reports that they did not find blockages. She is unsure what testing was done while she was in [place]. She does report that she had her gallbladder out and had a abscess on her liver. Neurologic and cardiac exam are normal. She does have some epigastric and left lower quadrant abdominal tenderness. Difficult history, I have ordered blood work, EKG, chest x-ray, CT scan of the abdomen pelvis with contrast. We will give her Zofran 4 mg IV as well as Dilaudid 0.5 mg IV. 03/05/21 23:20 Hematology significant for D-dimer elevated at 1.08, troponin elevated at 0.124. Remaining blood work is unremarkable. Patient refused Covid testing initially, however given her elevated troponin, I emphasized to her that this will be required for her to possibly be transferred to an outlying facility. She has agreed to complete this. I have added on CT angiogram of the chest. Reports chest pain has essentially resolved, however she gets occasional mild shooting pains still. Continues a plan of headache. I have ordered an additional Dilaudid 0.25 mg IV to be given now. Given patient's history of low platelets, I would not start heparin at this time. Once test results are available, we will consult cardiology. 03/05/21 23:52 Patient just returned from CT scan. CT results are pending. Case was discussed with Dr. Santos, ER physician. He will assume care and disposition of patient due to end of shift. Departure - Departure Disposition: Home, Self-Care 01 Clinical Impression: Headache, Chest pain, Elevated troponin I level, Abdominal pain - Discharge Information Instructions: Chest Wall Pain, [id number], Abdominal Pain, Adult, [id number], Migraine Headache Referrals: Rob Amor MD [Primary Care Provider] - Forms: ED Department Discharge Additional Instructions: You were seen in the emergency room for a headache, chest pain, and abdominal pain since Sunday. Work-up in the ER included numerous blood tests, a swab for the SARS-CoV-2 virus, a chest x-ray, a CT angiogram of your chest, a CT of your abdomen and pelvis with oral and IV contrast, and an ECG. Your troponin (heart enzyme) returned elevated at 0.124. The remainder of your work-up was unremarkable. You do not have a blood clot in your lungs. No abnormality was found on the CT of your abdomen and pelvis. Your platelets are up to 113,000. There is no sign of an infection. Your swab for the SARS-CoV-2 virus was negative. Your case was discussed with a Porter Luggage at [facility]. He recommended that we repeat a troponin level, and that if it is decreasing, that you can safely be discharged home, but that if it is not decreasing, that we may need to transfer you to [place]. You declined to have your troponin level repeated, preferring to go home. We strongly recommend that you follow-up with your PCP or Porter Luggage at the ne xt available appointment. If any other problems, including worsening of your symptoms, please do not hesitate to return to the ER. <Grey Santos - Last Filed: 03/06/21 03:38> Course - Vital Signs Last Recorded V/S: Last Vital Signs Temp 36.4 C 03/05/21 20:23 Pulse 81 03/05/21 20:23 Resp 18 03/05/21 20:23 BP 146/94 H 03/05/21 20:23 Pulse Ox 98 03/05/21 20:23 - Orders/Labs/Meds Orders: Active Orders 24 hr Category Date Time Status Peripheral IV Care [RC] . DIRECTED Care 03/05/21 21:57 Active Abdomen Pelvis w Cont [CT] Stat Exams 03/05/21 22:01 Taken Chest 2V [CR] Stat Exams 03/05/21 22:02 Taken PE Chest [Ang Chest] [CT] Stat Exams 03/05/21 23:15 Taken TROPONIN I [CHEM] Stat Lab 03/06/21 03:21 Ordered Sodium Chloride 0.9% [Normal Saline] 100 ml Med 03/05/21 23:30 Active IV ASDIRECTED Sodium Chloride 0.9% [Saline Flush] Med 03/05/21 21:56 Active 10 ml FLUSH ASDIRECTED PRN Peripheral IV Insertion Adult [OM.PC] Stat Oth 03/05/21 21:56 Ordered Medication Orders Sodium Chloride (Normal Saline) 100 mls @ 70 mls/min IV ASDIRECTED RODRIGO Last Admin: 03/05/21 23:47 Dose: 70 mls/min Documented by: CK Sodium Chloride (Sodium Chloride 0.9% 10 Ml Syringe) 10 ml FLUSH ASDIRECTED PRN PRN Reason: Keep Vein Open Last Admin: 03/05/21 23:46 Dose: 10 ml Documented by: Admin: 03/05/21 22:15 Dose: 10 ml Documented by: Admin: 03/05/21 22:14 Dose: 10 ml Documented by: DARIUS Labs: Laboratory Tests 03/05/21 03/05/21 03/05/21 Range/Units 22:11 22:11 22:11 WBC 6.81 (3.98-10.04) K/mm3 RBC 3.83 L (3.98-5.22) M/mm3 Hgb 12.4 (11.2-15.7) gm/dl Hct 37.6 (34.1-44.9) % MCV 98.2 H (79.4-94.8) fl MCH 32.4 H (25.6-32.2) pg MCHC 33.0 (32.2-35.5) g/dl RDW Std Deviation 43.3 (36.4-46.3) fL Plt Count 113 L (182-369) K/mm3 MPV 9.9 (9.4-12.3) fl Neut % (Auto) 53.5 (34.0-71.1) % Lymph % (Auto) 31.7 (19.3-51.7) % Henry % (Auto) 9.1 (4.7-12.5) % Eos % (Auto) 4.4 (0.7-5.8) Baso % (Auto) 0.9 (0.1-1.2) % Neut # (Auto) 3.64 (1.56-6.13) K/mm3 Lymph # (Auto) 2.16 (1.18-3.74) K/mm3 Henry # (Auto) 0.62 H (0.24-0.36) K/mm3 Eos # (Auto) 0.30 (0.04-0.36) K/mm3 Baso # (Auto) 0.06 (0.01-0.08) K/mm3 D-Dimer, Quantitative 1.08 H (0.19-0.50) mg/L Sodium 140 (136-145) mEq/L Potassium 3.8 (3.5-5.1) mEq/L Chloride 105 (98-107) mEq/L Carbon Dioxide 29 (21-32) mEq/L Anion Gap 9.8 (5-15) BUN 14 (7-18) mg/dL Creatinine 0.7 (0.55-1.02) mg/dL Est Cr Clr Drug Dosing 101.30 mL/min Estimated GFR (MDRD) > 60 (>60) mL/min BUN/Creatinine Ratio 20.0 H (14-18) Glucose 94 (70-99) mg/dL Calcium 8.7 (8.5-10.1) mg/dL Total Bilirubin 0.3 (0.2-1.0) mg/dL AST 12 L (15-37) U/L ALT 22 (14-59) U/L Alkaline Phosphatase 86 (46-116) U/L Troponin I 0.124 H* (0.00-0.056) ng/mL C-Reactive Protein <0.2 (<1.0) mg/dL Total Protein 6.3 L (6.4-8.2) g/dl Albumin 3.5 (3.4-5.0) g/dl Globulin 2.8 gm/dL Albumin/Globulin Ratio 1.3 (1-2) HCG, Qual (NEGATIVE) SARS-CoV-2 RNA (LORIE) (NEGATIVE) 03/05/21 03/05/21 Range/Units 22:11 23:30 WBC (3.98-10.04) K/mm3 RBC (3.98-5.22) M/mm3 Hgb (11.2-15.7) gm/dl Hct (34.1-44.9) % MCV (79.4-94.8) fl MCH (25.6-32.2) pg MCHC (32.2-35.5) g/dl RDW Std Deviation (36.4-46.3) fL Plt Count (182-369) K/mm3 MPV (9.4-12.3) fl Neut % (Auto) (34.0-71.1) % Lymph % (Auto) (19.3-51.7) % Henry % (Auto) (4.7-12.5) % Eos % (Auto) (0.7-5.8) Baso % (Auto) (0.1-1.2) % Neut # (Auto) (1.56-6.13) K/mm3 Lymph # (Auto) (1.18-3.74) K/mm3 Henry # (Auto) (0.24-0.36) K/mm3 Eos # (Auto) (0.04-0.36) K/mm3 Baso # (Auto) (0.01-0.08) K/mm3 D-Dimer, Quantitative (0.19-0.50) mg/L Sodium (136-145) mEq/L Potassium (3.5-5.1) mEq/L Chloride (98-107) mEq/L Carbon Dioxide (21-32) mEq/L Anion Gap (5-15) BUN (7-18) mg/dL Creatinine (0.55-1.02) mg/dL Est Cr Clr Drug Dosing mL/min Estimated GFR (MDRD) (>60) mL/min BUN/Creatinine Ratio (14-18) Glucose (70-99) mg/dL Calcium (8.5-10.1) mg/dL Total Bilirubin (0.2-1.0) mg/dL AST (15-37) U/L ALT (14-59) U/L Alkaline Phosphatase (46-116) U/L Troponin I (0.00-0.056) ng/mL C-Reactive Protein (<1.0) mg/dL Total Protein (6.4-8.2) g/dl Albumin (3.4-5.0) g/dl Globulin gm/dL Albumin/Globulin Ratio (1-2) HCG, Qual Negative (NEGATIVE) SARS-CoV-2 RNA (LORIE) Negative (NEGATIVE) Meds: Medications Generic Name Dose Route Start Last Admin Trade Name Freq PRN Reason Stop Dose Admin Sodium Chloride 100 mls @ 70 mls/min 03/05/21 23:30 03/05/21 23:47 Normal Saline IV 70 mls/min ASDIRECTED RODRIGO Administration Sodium Chloride 10 ml 03/05/21 21:56 03/05/21 23:46 Sodium Chloride 0.9% 10 Ml Syringe FLUSH 10 ml ASDIRECTED PRN Administration Keep Vein Open Discontinued Medications Generic Name Dose Route Start Last Admin Trade Name Freq PRN Reason Stop Dose Admin Diatrizoate Meglum/Diatrizoate Sod 120 ml 03/05/21 23:13 03/05/21 23:46 Diatrizoate Meglumine/Diatrizoate Sodium 37% 120 Ml Bottle PO 03/05/21 23:14 120 ml ONETIME ONE Administration Hydromorphone HCl 0.5 mg 03/05/21 22:48 03/05/21 22:55 Hydromorphone 0.5 Mg/0.5 Ml Syringe IVPUSH 03/05/21 22:49 0.5 mg ONETIME ONE Administration Hydromorphone HCl 0.5 mg 03/05/21 23:22 03/05/21 23:32 Hydromorphone 0.5 Mg/0.5 Ml Syringe IVPUSH 03/05/21 23:23 0.5 mg ONETIME ONE Administration Hydromorphone HCl 0.5 mg 03/05/21 23:54 03/06/21 00:07 Hydromorphone 0.5 Mg/0.5 Ml Syringe IVPUSH 03/05/21 23:55 0.5 mg ONETIME ONE Administration Iopamidol 50 ml 03/05/21 23:13 03/05/21 23:18 Iopamidol 612 Mg/Ml 50 Ml Sdv IVPUSH 03/05/21 23:14 Not Given ONETIME ONE Iopamidol 100 ml 03/05/21 23:13 03/05/21 23:18 Iopamidol 612 Mg/Ml 100 Ml Bottle IVPUSH 03/05/21 23:14 Not Given ONETIME ONE Iopamidol 100 ml 03/05/21 23:19 03/05/21 23:46 Iopamidol 755 Mg/Ml 100 Ml Bottle IVPUSH 03/05/21 23:20 100 ml ONETIME ONE Administration Ondansetron HCl 4 mg 03/05/21 22:48 03/05/21 22:55 Ondansetron 4 Mg/2 Ml Sdv IVPUSH 03/05/21 22:49 4 mg ONETIME ONE Administration Sodium Chloride 10 ml 03/05/21 23:13 Sodium Chloride 0.9% 10 Ml Sdv FLUSH 03/05/21 23:14 ONETIME ONE - Re-Assessments/Exams Free Text/Narrative Re-Assessment/Exam: 03/06/21 01:32 The patient's swab for the SARS-CoV-[address] angiogram of the chest is read by [facility] as: 1. No pulmonary embolus. 2. Remainder of findings as described above. CT of the abdomen and pelvis with oral and IV contrast is read by [facility] as: 1. Postoperative changes as above. 2. Bilateral ovarian cysts as above. Remainder of findings as described as above. 03/06/21 03:21 Case discussed with Antonieta at [facility] at 03:03. She stated that the patient underwent an echo stress test on 01/18/2021, which was negative. She was admitted to [facility] from 01/29/2021 through 01/31/2021, during which time she was given a platelet transfusion. She was scheduled for a bone marrow biopsy which she underwent on 02/04/2021. It appears that she may have suffered some SVT during her hospitalization, and Cardiology was consulted. There was mention of an elevated troponin, however, when Antonieta reviewed all the patient's labs, none of the patient's troponins were elevated, so it is not clear where that entry came from. Case then discussed with Dr. Bagley, Porter Luggage on-call, at 03:18. He recommended that we repeat a troponin. If it is going down, he feels that the patient can safely be discharged home. If it is not going down, then I have to call him back. 03/06/21 03:28 Test results and my conversations with both Antonieta and Dr. Bagley discussed with the patient. I recommended, as above, that we repeat her troponin, but she is upset, stating that none of us seem to know what the heck we are doing, and that she just wants to go home. Departure - Departure Time of Disposition: 03:29 Condition: Good - Discharge Information *PRESCRIPTION DRUG MONITORING PROGRAM REVIEWED*: Not Applicable *COPY OF PRESCRIPTION DRUG MONITORING REPORT IN PATIENT LIYAH: Not Applicable Sepsis Event Note (ED) - Focused Exam Vital Signs: Vital Signs Temp Pulse Resp BP Pulse Ox 03/05/21 20:23 36.4 C 81 18 146/94 H 98 - My Orders Last 24 Hours: My Active Orders 03/06/21 03:21 TROPONIN I [CHEM] Stat - Assessment/Plan Last 24 Hours: My Active Orders 03/06/21 03:21 TROPONIN I [CHEM] Stat
[2021-03-05] MEDS ORDERED: Ondansetron 4 MG/2 ML SDV IVPUSH ONE (22:48)
[2021-03-05] MEDS ORDERED: HYDROmorphone 0.5 MG/0.5 ML Syringe IVPUSH ONE ×3 (22:48→23:54)
[2021-03-05] MEDS ORDERED: Sodium Chloride 0.9% 10 ML SDV FLUSH ONE (23:13)
[2021-03-05] MEDS ORDERED: Iopamidol 612 MG/ML 100 ML Bottle IVPUSH ONE (23:13)
[2021-03-05] MEDS ORDERED: Iopamidol 612 MG/ML 50 ML SDV IVPUSH ONE (23:13)
[2021-03-05] MEDS ORDERED: Diatrizoate Meglumine/Diatrizoate Sodium 37% 120 ML Bottle PO ONE (23:13)
[2021-03-05] MEDS ORDERED: Iopamidol 755 Mg/ML 100 ML Bottle IVPUSH ONE (23:19)
[2021-03-05] MEDS ORDERED: Sodium Chloride 0.9% 100 ML IV SCH (23:30)
--- NOTE | 2021-03-06 09:13 | CR ---
Chest: PA and lateral views of the chest were obtained. Comparison: Prior chest x-ray of 11/06/13. Heart size and mediastinum are within normal limits. Very slight atelectasis is seen within the left lung base. Lungs otherwise are clear. Minimal scoliosis is noted within the spine. Surgical clips are noted from prior cholecystectomy. Impression: 1. Minimal left basilar atelectasis. 2. Prior cholecystectomy. 3. Nothing acute is seen. Diagnostic code #2
--- NOTE | 2021-03-06 09:15 | CT ---
CT abdomen and pelvis Technique: Multiple axial sections were obtained from above the dome of the diaphragm inferiorly through the pubic symphysis. Intravenous and oral contrast were utilized. Delayed images were obtained through the bladder. Reconstructed coronal and sagittal images were obtained. Comparison: Prior CT abdomen and pelvis study of 12/25/19. Findings: Visualized lung bases show nothing acute. Incidental note of minimal dependent atelectasis is noted posteriorly within both lung bases. Surgical clips are seen from prior cholecystectomy. Low-density lesion is noted within the inferior spleen measuring 1.7 cm. Additional abnormality is seen within the upper spleen measuring 1.8 cm. Adrenal glands show no nodule. Pancreas is within normal limits. Kidneys show symmetric contrast enhancement. There is a slight area of diminished enhancement felt to be present within the inferior right kidney raising the possibility of minimal area of pyelonephritis. Kidneys are otherwise unremarkable. Delayed images show contrast within both ureters as well as within the bladder. Abdominal aorta shows no aneurysm. No retroperitoneal adenopathy or mesenteric abnormalities are seen. Appendix is seen which is normal. Prior hysterectomy is noted. Small cysts are noted within both ovaries which are felt to be physiologic. No free fluid or inflammatory change is seen. Impression: 1. Prior cholecystectomy. 2. Two lesions within the spleen which are felt to be benign. These are not identified on prior noncontrast CT exam. 3. Slight diminished perfusion within the inferior right kidney. Difficult to exclude small area of pyelonephritis if patient has infectious symptoms. Diagnostic code #2 I mostly agree with preliminary report from [facility] (two spleen findings as described above, equivocal pyelonephritis), finalized on 03/06/21, 2:24 AM CDT, code 2
--- NOTE | 2021-03-06 10:53 | CT ---
CT chest Technique: Multiple axial sections were obtained from above the lung apices inferiorly through the lung bases. Intravenous contrast was utilized. Study has been performed as a pulmonary angiogram protocol. Comparison: No prior CT chest study is available, prior chest x-ray performed on the same date (11:33 PM). Findings: Pulmonary arteries are well opacified. No filling defects are seen to indicate pulmonary embolism. Thyroid gland shows calcifications and several nodules. Thoracic aorta shows no aneurysm. Mediastinum shows no adenopathy. No pericardial thickening is seen. Prior cholecystectomy is seen. Other visualized portions of the upper abdomen appear unremarkable. Small air cyst is noted within the right lung base measuring 7 mm. Second small air cyst is noted within the subpleural region within the right upper lung measuring 6 mm. Slight atelectasis is noted within the posterior lungs. Lungs show no acute parenchymal change. Bone window settings were reviewed which show no acute osseous finding. Very slight degenerative spurring is seen within the mid thoracic spine. Impression: 1. No findings of pulmonary embolism. 2. Slightly abnormal thyroid gland which is most likely incidental. 3. Other findings also felt to be incidental. Nothing acute is definitely appreciated. Diagnostic code #2 I agree with preliminary report from [facility], finalized on 03/06/21, 2:28 AM CDT, code 1
== END 2021-03-06 03:40 | disposition home or self-care (01) ==
LOC: JD.ED 20:11
DX: R79.89 Other specified abnormal findings of blood chemistry (principal); R07.89 Other chest pain; R51.9 Headache, unspecified; R10.84 Generalized abdominal pain; I25.2 Old myocardial infarction; F17.210 Nicotine dependence, cigarettes, uncomplicated; Z20.822 Contact with and (suspected) exposure to COVID-19; Z88.8 Allergy status to other drugs, medicaments and biological substances; Z79.899 Other long term (current) drug therapy; Z90.49 Acquired absence of other specified parts of digestive tract
CPT/HCPCS: 36415; 71046; 71275; 74177; 80053; 84484; 84703; 85025; 85379; 86140; 87635; 93005; 96374; 96375; 96376; 99285; J1170; J2405; Q9963; Q9967; U0002

== ENCOUNTER 2021-03-31 16:32 | Emergency (ER) | payer OTHER ==
--- NOTE | 2021-03-31 17:09 | EDM.PDOC ---
ED HPI GENERAL MEDICAL PROBLEM - General Chief Complaint: Chest Pain Stated Complaint: CHEST PAIN \ HEADACHE Time Seen by Provider: 03/31/21 17:09 Source of Information: Reports: Patient History Limitations: Reports: No Limitations, Physical Impairment - History of Present Illness INITIAL COMMENTS - FREE TEXT/NARRATIVE: 45-year-old female presents to the ED for evaluation of acute onset of right hemicranial headache associated with visual changes in her right eye and some numbness and tingling in her left arm and perhaps some dysarthria with trouble finding the right words to say. Her mother was driving her home from hospital in [place] when symptoms occurred around [place]. Patient does get occasional migraine headaches. Patient has had a host of problems starting at the end of December this year with what sounds like the development of idiopathic thrombocytopenic purpura. She has required blood transfusions x2 and platelet transfusions at least twice. She is currently on high-dose steroids started on 80 mg a day recently to try and improve her platelet levels. She has an appointment at the [facility] next week for hematology evaluation. Apparently been bone marrow aspiration revealed anemia and low platelet count but no other pathology. She had transient elevation of liver enzymes and she has had recurrent slightly elevated troponins anywhere from 0.8 up to 0.112 but a full investigation of her heart including an angiogram showed no pathology. She is also had elevated D-dimers but this is due to spontaneous bruising due to low platelet count. Current headache is down to a 6 out of 10 well and seen in the emergency room and her visual acuity in right eye has returned to normal as has her speech. She states the headache started about 10 minutes after the development of right hemicranial headache pain. It took about 20 minutes to half an hour for her speech and her eyesight to return to normal. No associated nausea or vomiting. Onset: Today, Sudden Onset Date: 03/31/21 Onset Time: 16:20 Duration: Minutes:, Improving Location: Reports: Face ([place] and blurred vision right visual field with development of right hemicranial headache within 10 minutes of development of neuro and visual acuity changes.), Upper Extremity, Left (Numbness tingling dorsal aspect of left hand and wrist area) Quality: Reports: Ache, Throbbing (Throbbing pulsating right hemicranial headache) Severity: Moderate Improves with: Reports: Other (Proving with time.) Worsens with: Reports: None Context: Reports: Other (Just got out of hospital at [facility] in [place] today). Denies: Activity, Exercise, Lifting, Sick Contact, Trauma Associated Symptoms: Reports: Chest Pain, Headaches, Loss of Appetite, Other (Disrupted sleep pattern secondary to high-dose steroids). 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 (see below) (Patient did not take any medication before coming to the ED) Chest Pain Score (Numeric/FACES): 3 - Related Data Allergies Allergy/AdvReac Type Severity Reaction Status Date / Time doxycycline Allergy Intermediate Rash Verified 03/05/21 20:24 Home Meds: Home Meds Docusate Sodium [Colace] 100 mg PO DAILY 11/26/17 [History] LORazepam [Ativan] 0.5 mg PO QID PRN 11/26/17 [History] Past Medical History Cardiovascular History: Reports: [place] Other Cardiovascular History: asystole during tonsillectomy as child, reynauds Respiratory History: Reports: Pneumonia, Recurrent Other Respiratory History: open lung biopsy Gastrointestinal History: Reports: GERD, Hemorrhoids Genitourinary History: Reports: Urinary Incontinence PATTERNMAKER GRADER History: Reports: Spontaneous Other PATTERNMAKER GRADER History: miscarriage at 20 weeks, blood clot during Musculoskeletal History: Reports: Other (See Below) Other Musculoskeletal History: left foot surgery Other Neuro History: family history of MS; Belles palsy 2006 Psychiatric History: Reports: Anxiety, Depression Other Endocrine/Metabolic History: cyst by thyroid, was removed; Hematologic History: Reports: Blood Transfusion(s) Immunologic History: Reports: None Oncologic (Cancer) History: Reports: None Other Dermatologic History: hydradenititis - Infectious Disease History Infectious Disease History: Reports: None - Past Surgical History Head Surgeries/Procedures: Reports: None HEENT Surgical History: Reports: Adenoidectomy, Tonsillectomy Cardiovascular Surgical History: Reports: None GI Surgical History: Reports: Cholecystectomy Female Surgical History: Reports: D&C, Hysterectomy, LEEP, Oophorectomy, Salpingo-Oophorectomy, Tubal Ligation Other Female Surgeries/Procedures: pre-eclampsia 2nd child, cervical intraipthelial neoplasma x2, D&C, bladder sling Endocrine Surgical History: Reports: Thyroid Biopsy Neurological Surgical History: Reports: None Other Musculoskeletal Surgeries/Procedures:: broke foot 97 Oncologic Surgical History: Reports: None Social & Family History - Family History Family Medical History: No Pertinent Family History - Caffeine Use Caffeine Use: Reports: Coffee - Living Situation & Occupation Living situation: Reports: Occupation: Employed ED ROS GENERAL - Review of Systems Review Of Systems: See Below Constitutional: Reports: Malaise, Weakness, Fatigue, Decreased Appetite. Denies: Fever, Chills HEENT: Denies: Glasses Respiratory: Reports: No Symptoms Cardiovascular: Reports: Chest Pain (Epigastric central chest discomfort) Endocrine: Reports: Fatigue GI/Abdominal: Reports: Abdominal Pain (Epigastric abdominal pain discomfort) : Reports: No Symptoms Musculoskeletal: Reports: Other (Generalized myalgia tickly when off steroids.) Skin: Reports: Other (Spontaneous ecchymoses particular lower extremities) Neurological: Reports: Headache (Right hemicranial headache today associated with an aura), Paresthesia ( before this. Left upper extremity). Denies: Confusion, Dizziness Psychiatric: Reports: Depression Hematologic/Lymphatic: Reports: Anemia, Easy Bleeding, Easy Bruising, Other (Low platelet count I felt to be due to idiopathic thrombocytopenic purpura) ED EXAM, GENERAL - Physical Exam Exam: See Below Exam Limited By: No Limitations General Appearance: Alert, WD/WN, Mild Distress, Other (Vital signs show temperature 36.9. Heart rate 79 and sinus respiratory is 20 with O2 sats of 98% on room air BP is 142/98 initially.) Eye Exam: Bilateral Eye: Normal Inspection (Mild blepharal pallor. No scleral icterus), PERRL Throat/Mouth: Normal Inspection, Normal Lips, Normal Teeth, Normal Oropharynx, Other Head: Atraumatic, Normocephalic ([place] is in the midline) Neck: Normal Inspection, Supple, Non-Tender, Full Range of Motion. No: Carotid Bruit, Lymphadenopathy (L), Lymphadenopathy (R) Respiratory/Chest: No Respiratory Distress, Lungs Clear, Normal Breath Sounds, No Accessory Muscle Use Cardiovascular: Normal Peripheral Pulses, Regular Rate, Rhythm, No Edema, No Gallop, No Murmur, No Rub Peripheral Pulses: 3+: Carotid (L), Carotid (R), Posterior Tibial (L), Posterior Tibial (R), Dorsalis Pedis (L), Dorsalis Pedis (R) GI/Abdominal: Normal Bowel Sounds, Soft, Non-Tender, No Organomegaly, No Distention Back Exam: Normal Inspection, Full Range of Motion. No: CVA Tenderness (L), CVA Tenderness (R) Extremities: Normal Inspection, Normal Range of Motion, No Pedal Edema, Other (Does have scattered ecchymoses both lower extremities) Neurological: Alert, Oriented, CN II-XII Intact, Normal Cognition, Normal Gait Psychiatric: Normal Affect, Normal Mood Skin Exam: Warm, Dry, Intact, Ecchymosis (Multiple scattered ecchymoses p articular lower extremities), Pallor (Mild pallor) #1 Interpretation EKG Date: 03/31/21 Time: 17:09 Rhythm: NSR Rate (Beats/Min): 83 [place]: LAD-Left [place] Deviation (Minimal left axis deviation of -4 degrees) P-Wave: Present QRS: Other (Incomplete right bundle branch block pattern decreased voltage precordial leads) ST-T: Other (Nonspecific T wave flattening V2) QT: Normal EKG Interpretation Comments: Abnormal ECG Course - Vital Signs Last Recorded V/S: Last Vital Signs Temp 36.9 C 03/31/21 16:59 Pulse 79 03/31/21 19:30 Resp 18 03/31/21 19:30 BP 142/98 H 03/31/21 16:59 Pulse Ox 98 03/31/21 19:30 - Orders/Labs/Meds Labs: Laboratory Tests 03/31/21 03/31/21 03/31/21 Range/Units 17:13 17:13 17:13 WBC 15.61 H (3.98-10.04) K/mm3 RBC 3.15 L (3.98-5.22) M/mm3 Hgb 9.9 L D (11.2-15.7) gm/dl Hct 30.6 L (34.1-44.9) % MCV 97.1 H (79.4-94.8) fl MCH 31.4 (25.6-32.2) pg MCHC 32.4 (32.2-35.5) g/dl RDW Std Deviation 60.4 H (36.4-46.3) fL Plt Count 26 L D (182-369) K/mm3 MPV Not Reportable Neut % (Auto) 77.9 H (34.0-71.1) % Lymph % (Auto) 13.6 L (19.3-51.7) % [place] % (Auto) 3.8 L (4.7-12.5) % Eos % (Auto) 0.1 L (0.7-5.8) Baso % (Auto) 0.2 (0.1-1.2) % Neut # (Auto) 12.16 H (1.56-6.13) K/mm3 Lymph # (Auto) 2.13 (1.18-3.74) K/mm3 [place] # (Auto) 0.59 H (0.24-0.36) K/mm3 Eos # (Auto) 0.01 L (0.04-0.36) K/mm3 Baso # (Auto) 0.03 (0.01-0.08) K/mm3 Manual Slide Review Abnormal smear PT 10.5 (9.7-12.0) SECONDS INR 0.94 APTT 22.7 (21.7-31.4) SECONDS Sodium 141 (136-145) mEq/L Potassium 3.9 (3.5-5.1) mEq/L Chloride 105 (98-107) mEq/L Carbon Dioxide 26 (21-32) mEq/L Anion Gap 13.9 (5-15) BUN 17 (7-18) mg/dL Creatinine 0.8 (0.55-1.02) mg/dL Est Cr Clr Drug Dosing 88.64 mL/min Estimated GFR (MDRD) > 60 (>60) mL/min BUN/Creatinine Ratio 21.3 H (14-18) Glucose 132 H (70-99) mg/dL Calcium 8.9 (8.5-10.1) mg/dL Magnesium 2.2 (1.8-2.4) mg/dL Total Bilirubin 2.3 H (0.2-1.0) mg/dL AST 50 H (15-37) U/L ALT 158 H (14-59) U/L Alkaline Phosphatase 126 H (46-116) U/L CK-MB (CK-2) 0.6 (0-3.6) ng/ml Troponin I 0.085 H* (0.00-0.056) ng/mL Total Protein 7.4 (6.4-8.2) g/dl Albumin 3.7 (3.4-5.0) g/dl Globulin 3.7 gm/dL Albumin/Globulin Ratio 1.0 (1-2) Meds: Medications Discontinued Medications Generic Name Dose Route Start Last Admin Trade Name Freq PRN Reason Stop Dose Admin Metoclopramide HCl 7.5 mg 03/31/21 17:54 03/31/21 18:19 Metoclopramide 10 Mg/2 Ml Sdv IVPUSH 03/31/21 17:55 7.5 mg ONETIME ONE Administration Sodium Chloride 10 ml 03/31/21 17:54 03/31/21 18:00 Sodium Chloride 0.9% 10 Ml Syringe FLUSH 10 ml ASDIRECTED PRN Administration Keep Vein Open - Radiology Interpretation Free Text/Narrative:: 45-year-old female presents to the ED for evaluation of acute onset of a right- sided symptoms with blurred vision slurred speech and numbness and tingling of the dorsal left hand and wrist area. She developed a right hemicranial headache about 10 minutes later compatible with a migraine headache with aura. At the time she was seen in the ED her visual acuity had returned to normal headache was rated as a 7 out of 10. Numbness and tingling in the left upper extremity was also gone. Patient has a complex history with development of idiopathic thrombocytopenic purpura with spontaneous bruising and ecchymoses all over her body towards the end of December of this year. She has required multiple blood transfusions and platelet transfusions in [place]. She also had to have her gallbladder out due to feeling that it was causing an infection and significant inflammation and recurrence of epigastric abdominal pain. Unfortunately she continues to have epigastric and lower retrosternal chest pain worrisome for cardiac etiology but cardiac work-up so far including an angiogram has been completely normal. She did have some epigastric chest pain today as well. Of note the patient has been on multiple high doses of steroids up to 60 mg a day for a month to keep her platelets around 70,000. However after discontinuing medication platelets drifted back to below 15,000. She is currently now on 80 mg of prednisone daily to try maintain an adequate platelet count. She is plans to follow-up with the [facility] on April 05 of this month. She did have transient elevated liver enzymes but when I look at her labs most of this was a mildly elevated bilirubin due to red cell turnover and minimal elevation of the serum transaminases that would be concerning for an autoimmune disease other than idiopathic thrombocytopenic purpura. Plan she will be given Reglan 7.5 mg IV for headache relief. She did not want narcotic. She will have CT head performed and routine labs including cardiac markers ECG done in the emergency room does not show any signs of ischemia. It does show an incomplete right bundle branch block which she has had in the past. - Re-Assessments/Exams Free Text/Narrative Re-Assessment/Exam: 03/31/21 18:26 CT head has been completed without contrast. It was compared to an MRI of the brain done July [id number]. She also had a head CT done on the June [id number]. Ventricles along with the basal cisterns and sulci over the convexities are within normal limits for the patient's age. No abnormal parenchymal densities are appreciated. No evidence of intracranial hemorrhage is seen. No midline shift or mass-effect is seen. Bone window settings were reviewed. Visualized mastoid sinuses and paranasal sinuses are clear. No acute calvarial abnormalities appreciated. 03/31/21 18:28 White count is elevated at 15.61 due to steroid effect. The differential reveals 77.9% neutrophils. Hemoglobin is 9.9 with hematocrit of 30.6. Platelet count is 26,000. 03/31/21 19:08 PT is 10.5 with an INR of 0.94. PTT is 22.7. Sodium is 141 and potassium is 3.9. Chloride is 105 with a bicarb of 26. Anion gap is 13.9. BUN is 17 with a creatinine of 0.8 and a GFR greater than 60. Glucose is 132 with a calcium of 8.9. Magnesium 2.2 bilirubin elevated at 2.3 AST is 50 with an ALT of 158 alkaline phosphatase minimally elevated at 126. CK-MB fraction is 0.6 troponin I is 0.085. Total protein 7.4 with an albumin fraction of 3.7 I have discussed the results of the test with the patient and other than her slightly elevated serum troponin level no other abnormalities were identified. It is apparent that she is running an elevated troponin level all the time still likely related to anemia and cardiac stress response. Headache is mildly improved after Reglan 7.5 mg IV. No further interventions or treatments are required at this time. Departure - Departure Time of Disposition: 19:32 Disposition: Home, Self-Care 01 Reason for Transfer *Q: Other Condition: Fair Clinical Impression: Idiopathic thrombocytopenic purpura, Elevated troponin I measurement Migraine headache with aura Qualifiers: Status migrainosus presence: without status migrainosus Intractability: not intractable Qualified Code(s): G43.109 - Migraine with aura, not intractable, without status migrainosus Instructions: Migraine Headache, [id number], Idiopathic Thrombocytopenic Purpura Referrals: Rob Amor MD [Primary Care Provider] - Forms: ED Department Discharge Additional Instructions: Evaluation in the emergency room today in regards to development of a right hemicranial headache after development of blurred vision right eye and numbness and tingling in the dorsal aspect of your left hand and wrist. Headache occurred within about 10 minutes of development of visual acuity changes highly suggestive of a migraine headache with aura. Due to history of low platelet count CT of the head was performed and is completely normal without any signs of intracranial bleeding or mass-effect. Lab work revealed hemoglobin to be 9.9 after blood transfusion and serum platelet count is 25,000 after platelet infusion. The history strongly suggest that you have idiopathic thrombocytopenic purpura. The mildly elevated liver enzymes are likely due to steroid effect. The elevated bilirubin is secondary to red blood cell breakdown going through a slightly enlarged spleen I suspect and every time you develop a bruise you are losing red blood cells as well. Further investigations are to be completed with hematology at the [facility] on the of this month which hopefully will sort out the problems once and for all. Currently you are on high-dose steroids which well may interfere with your ability to sleep and it is safe to take melatonin up to 20 mg at bedtime. Lab test today revealed your troponin I to be elevated at 0.085 you are therefore running an elevated troponin I level with normal our lab being up to 0.056 which I think is secondary to will recall cardiac strain effect and that is why all the investigations on your heart have been normal. There is a chance that you have something called Prinzmetal angina that you should question the [facility] doctors about as there is medication that we can put you on to prevent this pain from occurring. It is actually spasm of the coronary artery that causes chest pain mimicking heart attack. Of course return to medical care if any further problems occur
[2021-03-31 17:16] VITALS: BP 142/98; PULSE 79
[2021-03-31] MEDS ORDERED: Sodium Chloride 0.9% 10 ML Syringe FLUSH PRN (17:54)
[2021-03-31] MEDS ORDERED: Metoclopramide 10 MG/2 ML SDV IVPUSH ONE (17:54)
--- NOTE | 2021-03-31 18:22 | CT ---
Head CT Technique: Multiple axial sections of the brain were obtained. Intravenous contrast was not utilized. Reconstructed coronal and sagittal images were obtained. Comparison: Prior MRI brain of 07/03/[address] study of 06/25/17. Findings: Ventricles along with basal cisterns and sulci over the convexities are within normal limits for the patient's age. No abnormal parenchymal densities are seen. No evidence of intracranial hemorrhage is seen. No midline shift or mass-effect is seen. Bone window settings were reviewed. Visualized mastoid sinuses and paranasal sinuses are clear. No acute calvarial abnormality is appreciated. Impression: 1. Nothing acute is seen on noncontrast head CT study. 2. No significant change is seen from prior intracranial studies. Diagnostic code #1
== END 2021-03-31 20:05 | disposition home or self-care (01) ==
LOC: JD.ED 16:32
DX: G43.109 Migraine with aura, not intractable, without status migrainosus (principal); D69.3 Immune thrombocytopenic purpura; R79.89 Other specified abnormal findings of blood chemistry; Z88.1 Allergy status to other antibiotic agents
CPT/HCPCS: 36415; 70450; 80053; 82553; 83735; 84484; 85025; 85610; 85730; 93005; 96374; 99284; J2765

== ENCOUNTER 2022-05-24 09:17 | Emergency (ER) | payer OTHER ==
[2022-05-24] MEDS ORDERED: Sodium Chloride 0.9% 10 ML Syringe FLUSH PRN (09:46)
[2022-05-24] MEDS ORDERED: Metoclopramide 10 MG/2 ML SDV IVPUSH ONE (09:47)
[2022-05-24] MEDS ORDERED: diphenhydrAMINE 50 MG/ML SDV IVPUSH ONE (09:47)
[2022-05-24] MEDS ORDERED: Ketorolac 30 MG/ML SDV IVPUSH ONE (09:47)
[2022-05-24 10:57] LABS: CORONAVIRUS COVID-19 NAA NEGATIVE (NEGATIVE)
[2022-05-24] MEDS ORDERED: HYDROmorphone 1 MG/ML Syringe IVPUSH ONE (10:59)
[2022-05-24 12:23] VITALS: BP 115/79; PULSE 66
== END 2022-05-24 12:25 | disposition home or self-care (01) ==
LOC: JD.ED 09:17
DX: R51.9 Headache, unspecified (principal); I10 Essential (primary) hypertension; I25.2 Old myocardial infarction; F17.210 Nicotine dependence, cigarettes, uncomplicated; Z88.1 Allergy status to other antibiotic agents; Z79.899 Other long term (current) drug therapy; Z90.49 Acquired absence of other specified parts of digestive tract; Z90.710 Acquired absence of both cervix and uterus; Z20.822 Contact with and (suspected) exposure to COVID-19
CPT/HCPCS: 0241U; 36415; 70450; 80053; 82947; 84484; 85025; 85379; 85610; 85730; 96374; 96375; 99284; J1200; J1885; J2765; J3490

== ENCOUNTER 2022-05-26 14:25 | Emergency (ER) | payer OTHER ==
[2022-05-26] MEDS: Sodium Chloride 0.9% 10 ML Syringe FLUSH PRN ×2 (16:35→17:35)
[2022-05-26] MEDS ORDERED: HYDROmorphone 1 MG/ML Syringe IVPUSH ONE (16:58)
[2022-05-26] MEDS ORDERED: Metoclopramide 10 MG/2 ML SDV IVPUSH ONE (16:58)
[2022-05-26] MEDS ORDERED: Acetaminophen 325 MG Tab PO ONE (16:59)
[2022-05-26] MEDS ORDERED: Dextrose 5%-0.9% NaCl 1,000 ML IV SCH (17:00)
[2022-05-26] MEDS ORDERED: Dicyclomine 10 MG Cap PO ONE (19:00)
[2022-05-26] MEDS ORDERED: Aluminum Hydroxide/Magnesium Hydroxide/Simethicone Susp 30 ML Cup PO ONE (19:01)
[2022-05-26 20:26] VITALS: BP 103/68; PULSE 64
== END 2022-05-26 20:25 | disposition home or self-care (01) ==
LOC: JD.ED 14:25
DX: K44.9 Diaphragmatic hernia without obstruction or gangrene (principal); R07.89 Other chest pain; B34.9 Viral infection, unspecified; I10 Essential (primary) hypertension; I25.2 Old myocardial infarction; Z88.1 Allergy status to other antibiotic agents; Z79.899 Other long term (current) drug therapy; Z90.49 Acquired absence of other specified parts of digestive tract; Z90.710 Acquired absence of both cervix and uterus
CPT/HCPCS: 36415; 71045; 80053; 83735; 84484; 85025; 85379; 85610; 86140; 93005; 96361; 96374; 96375; 99285; A9270; J1170; J2765; J3490; J7042

== ENCOUNTER 2024-06-09 14:15 | Emergency (ER) | payer BC, OTHER ==
[2024-06-09] MEDS: Aspirin 81 MG Tab.Chew PO ONE (15:23)
[2024-06-09 15:24] LABS: BASOPHILS ABSOLUTE AUTO 0.1 K/mm3 (0.0-0.2); BASOPHILS PERCENT AUTO 0.6 % (0.0-1.0); EOSINOPHILS ABSOLUTE AUTO 0.3 K/mm3 (0.0-0.4); HEMATOCRIT 44.6 % (37.0-47.0); HEMOGLOBIN 14.6 gm/dl (12.0-16.0); IMMATURE GRAN ABSOLUTE AUTO 0.03 K/mm3 (0.00-0.05); IMMATURE GRAN PERCENT AUTO 0.3 % (0.0-0.4); LYMPHOCYTES ABSOLUTE AUTO 2.5 K/mm3 (1.0-4.8); LYMPHOCYTES PERCENT AUTO 26.1 % (24.0-44.0); MEAN CORPUSCULAR HGB CONC 32.7 g/dl (32.0-36.0); MEAN CORPUSCULAR VOLUME 91.8 fl (83.0-99.0); MEAN PLATELET VOLUME 9.2 fl (9.4-12.3); MONOCYTES ABSOLUTE AUTO 0.7 K/mm3 (0.0-0.8); MONOCYTES PERCENT AUTO 6.9 % (0.0-8.0); NEUTROPHILS ABSOLUTE AUTO 6.1 K/mm3 (1.8-7.7); NEUTROPHILS PERCENT AUTO 63.1 % (41.0-71.0); PLATELET COUNT,PLT 321 K/mm3 (150-400); RED BLOOD CELL COUNT 4.86 M/mm3 (4.10-5.30); WHITE BLOOD CELL COUNT,WBC 9.62 K/mm3 (3.9-11.3)
[2024-06-09 15:44] VITALS: BP 123/70; PULSE 72
[2024-06-09 15:44] LABS: A/G RATIO 1.2 (1-2); ALANINE AMINOTRANSFERASE,ALT 23 U/L (14-59); ALBUMIN 3.7 g/dl (3.4-5.0); ALKALINE PHOSPHATASE 105 U/L (46-116); ANION GAP 13.6 (5-15); ASPARTATE AMNIOTRANSFERASE,AST 18 U/L (15-37); BILIRUBIN TOTAL 0.4 mg/dL (0.2-1.0); BLOOD UREA NITROGEN,BUN 10 mg/dL (7-18); BUN/CREATININE RATIO 14.3 (14-18); C-REACTIVE PROTEIN 0.05 mg/dL (<0.30); CALCIUM 8.8 mg/dL (8.5-10.1); CARBON DIOXIDE,CO2 27 mEq/L (21-32); CHLORIDE,CL 103 mEq/L (98-107); CREATININE 0.7 mg/dL (0.55-1.02); EST CRCL DRUG DOSING (CG) 98.07 mL/min; ESTIMATED GFR 106 mL/min (>60); GLUCOSE RANDOM 84 mg/dL (70-99); POTASSIUM,K 3.6 mEq/L (3.5-5.1); PROTEIN TOTAL,TP 6.8 g/dl (6.4-8.2); SODIUM,NA 140 mEq/L (136-145)
[2024-06-09 15:49] LABS: TROPONIN I HIGH SENSITIVITY < 4 pg/mL (<=51)
== END 2024-06-09 17:05 | disposition home or self-care (01) ==
LOC: JD.ED 14:15
DX: K21.9 Gastro-esophageal reflux disease without esophagitis (principal); I25.2 Old myocardial infarction; I10 Essential (primary) hypertension; F17.210 Nicotine dependence, cigarettes, uncomplicated; Z86.73 Personal history of transient ischemic attack (TIA), and cerebral infarction without residual deficits; Z90.49 Acquired absence of other specified parts of digestive tract; Z90.710 Acquired absence of both cervix and uterus; Z88.1 Allergy status to other antibiotic agents; Z79.82 Long term (current) use of aspirin; Z79.899 Other long term (current) drug therapy
CPT/HCPCS: 36415; 71045; 71045-26; 80053; 83735; 84484; 85025; 85379; 86140; 93005; 99285; A9270-GY